=== PATIENT | female | born 1990 ===

== ENCOUNTER 2016-04-30 06:46 | Inpatient (IN) ==
[2016-04-30] MEDS ORDERED: ceFAZolin 2,000 MG in PREMIX 1 EACH IV ONE (07:04)
[2016-04-30] MEDS ORDERED: FAMOTIDINE 20 MG/2 ML VIAL IV ONE (07:04)
[2016-04-30] MEDS ORDERED: CITRIC ACID/SODIUM CITRATE 30 ML UDCUP PO ONE (07:04)
[2016-04-30 07:22] LABS: Basophils % 0.2 % (0.0-0.8); Eosinophils # 0.1 10*3/uL (0.0-0.87); Eosinophils % 0.9 % (0.00-10.9); Hematocrit 35.7 VOL% (35.7-47.0); Hemoglobin 11.3 GM/DL (12.0-16.0); Immature Granulocytes % 0.5 %; Immature Granulocytes Absolute 0.03 #; Lymphocytes # 1.6 10*3/uL (1.4-4.0); Lymphocytes % 27.8 % (21.3-54.2); Mean Corpuscular HGB Conc 31.7 GM/DL (32-36); Mean Corpuscular Hemoglobin 26 PG (27-34); Mean Corpuscular Volume 80.4 FL (87-102); Monocytes # 0.5 10*3/uL (0.11-0.8); Monocytes % 8.6 % (1.7-12.7); Neutrophils # 3.6 10*3/uL (1.4-7.4); Platelet Count 205 T/CUMM (130-400); Red Blood Count 4.44 MC/CUMM (3.8-5.5); Red Cell Distribution Width 14.2 % (9.3-17.3); White Blood Count 5.7 T/CUMM (4-12)
[2016-04-30] MEDS ORDERED: LACTATED RINGERS 1,000 ML IV SCH ×2 (07:30→09:30)
[2016-04-30] MEDS ORDERED: LACTATED RINGERS 1,000 ML IV ONE (08:39)
[2016-04-30] MEDS ORDERED: OXYTOCIN 10 UNIT/ML VIAL IM ONE (09:00)
[2016-04-30] MEDS ORDERED: OXYTOCIN/LR 30 UNIT/1,000 ML BAG IV ONE (09:00)
[2016-04-30] MEDS ORDERED: ONDANSETRON 4 MG/2 ML VIAL ONE (09:11)
[2016-04-30] MEDS ORDERED: hydrOXYzine HCL 25 MG/1 ML VIAL IM PRN (09:21)
[2016-04-30] MEDS ORDERED: diphenhydrAMINE 50 MG/1 ML VIAL IV PRN (09:21)
[2016-04-30] MEDS ORDERED: ONDANSETRON 4 MG/2 ML VIAL IV PRN ×2 (09:21→10:27)
[2016-04-30] MEDS ORDERED: HYDROmorphone 2 MG/1 ML VIAL IV PRN (09:21)
[2016-04-30] MEDS ORDERED: NALOXONE 0.4 MG/ML VIAL IV PRN (09:24)
[2016-04-30] MEDS ORDERED: SODIUM CHLORIDE 0.9% 1,000 ML IV SCH (09:30)
--- NOTE | 2016-04-30 09:38 | OB/GYN History & Physical ---
History of Present Illness Chief complaint: In for elective repeat c/s due to previous c/s History of present illness: Ms. Werner is a 25 year old female who is a 4 para 2 living 2 AB 1. CHET for an estimated gestational age of 39 weeks. The patient presents to the labor department for elective repeat section due to previous section. The risks and benefits have been thoroughly discussed with this patient and significant other and plan care has been discussed with Dr. Saeed in all parties are planned. The patient received her care through the [facility] she started with late care and she received routine care, her course was uneventful. labs: She is O+, RPR is nonreactive, rubella is immune, hepatitis B is negative, HIV is negative, GBS cultures negative. Review of systems is negative with exception of previous section 2. Allergies Allergy/AdvReac Type Severity Reaction Status Date / Time No Known Allergies Allergy Verified 04/30/16 07:03 12 point system: reviewed and no additional remarkable complaints except as stated Medical,Surgical,& Family Hx - Medical History Medical History: noncontributory Reproductive: No history of: Ectopic , Complication - Surgical History Abdominal Surgeries: Surgical HX of: Appendectomy Reproductive Surgeries: Surgical HX of;: Section (C/S X2) Orthopedic Surgeries: Surgical HX of;: Orthopedic Surgery (LEFT KNEE) - Family History Family History: Reports;: Family Diabetes (MOTHER DADDY BROTHER), Family Hypertension (MOTHER DADDY) - Social History Smoking Status: Never smoker Frequency of Alcohol Use: None Type of Drug Use: None Marital Status: Single Lives With:: Significant Other Functional capacity: independent ambulation 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 - Constitutional Vitals: Vital Signs Temp Pulse Resp BP Pulse Ox 04/30/16 08:00 97.1 F L 95 H 20 140/84 98 General appearance: no acute distress - Antepartum / Post Antpartum Exam Cervix -Dilatation: Deferred Breast: bilateral: normal Abdomen obstetrics: Present: bowel sounds normal - Respiratory Respiratory exam: Present: clear to auscultation bilaterally - Cardiovascular Cardiovascular exam: Present: regular rate and rhythm - GI/Abdominal GI/Abdominal exam: Present: normal bowel sounds - Extremities Exam Extremities exam: Present: normal inspection - Back Exam Back exam: Present: normal inspection - Neurological Exam Neurological exam: Present: alert, oriented X3 - Psychiatric Psychiatric exam: Present: normal affect, normal mood - Skin Skin exam: Present: normal color, warm Assessment and Plan (1) Term Status: Acute Assessment and plan: Admit Preop Consent for Repeat C/S Anticipate viable infant. Current Visit: Yes (2) Previous section Status: Acute Current Visit: Yes Results - Labs CBC & BMP: 04/30/16 07:14
[2016-04-30] MEDS ORDERED: RHO(D) IMMUNE GLOBULIN 300 MCG SYRINGE IM ONE (10:27)
[2016-04-30] MEDS ORDERED: MAGNESIUM HYDROXIDE SUSP 30 ML UDCUP PO PRN (10:27)
[2016-04-30] MEDS ORDERED: ACETAMINOPHEN 325 MG TABLET PO PRN (10:27)
[2016-04-30] MEDS ORDERED: SIMETHICONE CHEW 80 MG TABLET PO PRN (10:27)
[2016-04-30] MEDS ORDERED: OXYTOCIN/LR 20 UNIT/1,000 ML BAG IV ONE (10:27)
[2016-04-30] MEDS ORDERED: fentaNYL 100 MCG/2 ML VIAL ONE (10:29)
[2016-04-30] MEDS ORDERED: MORPHINE 10 MG/10 ML VIAL ONE (10:30)
[2016-04-30] MEDS ORDERED: ePHEDrine 50 MG/ML AMP ONE (10:30)
[2016-04-30 10:37] LABS: Apearance,Urine CLEAR (Clear); Bilirubin,Urine Negative (Negative); Blood, Urine Negative (Negative); Glucose,Urine (UA) Negative (Negative); Ketones,Urine Negative (Negative); Mucus,Urine Few /LPF (Occasional); Nitrite,Urine Negative (Negative); Protein,Urine Negative; RBC,Urine <1 /HPF (0-4); Squamous Epithelial Cell,Urine Occasional /HPF (0-10); Urine Color Yellow (Yellow); Urine Specific Gravity 1.018 (1.001-1.035); Urine Urobilinogen < 2.0 EU/DL (0.2-1.0); WBC,Urine <1 /HPF (0-6)
[2016-04-30 10:39] LABS: Cord Arterial Blood HCO3 21.4 MMOL/L
[2016-04-30 10:40] LABS: Cord Venous Blood HCO3 23.8 MMOL/L; Cord Venous Blood PCO2 40.9 MMHG; Cord Venous Blood PO2 40.7 MMHG
[2016-04-30 17:49] LABS: Hematocrit 33.4 VOL% (35.7-47.0); Hemoglobin 10.3 GM/DL (12.0-16.0)
[2016-04-30] MEDS: LACTATED RINGERS 1,000 ML IV SCH (22:00)
[2016-04-30] MEDS: DOCUSATE SODIUM 100 MG CAPSULE PO SCH (22:21)
[2016-05-01 04:37] LABS: Basophils % 0.1 % (0.0-0.8); Eosinophils # 0.1 10*3/uL (0.0-0.87); Eosinophils % 1.3 % (0.00-10.9); Hemoglobin 9.5 GM/DL (12.0-16.0); Immature Granulocytes % 0.4 %; Immature Granulocytes Absolute 0.04 #; Lymphocytes # 1.7 10*3/uL (1.4-4.0); Lymphocytes % 18.3 % (21.3-54.2); Mean Corpuscular HGB Conc 32.8 GM/DL (32-36); Mean Corpuscular Hemoglobin 26 PG (27-34); Mean Corpuscular Volume 79.9 FL (87-102); Mean Platelet Volume 10.1 FL (9.6-12.0); Monocytes # 0.9 10*3/uL (0.11-0.8); Monocytes % 9.7 % (1.7-12.7); Neutrophils # 6.5 10*3/uL (1.4-7.4); Neutrophils % 70.2 % (38.7-73.9); Platelet Count 174 T/CUMM (130-400); Red Blood Count 3.63 MC/CUMM (3.8-5.5); Red Cell Distribution Width 14.2 % (9.3-17.3); White Blood Count 9.3 T/CUMM (4-12)
[2016-05-01] MEDS: LACTATED RINGERS 1,000 ML IV SCH (06:02)
[2016-05-01] MEDS: MULTIVITAMIN (PRENATAL) TABLET PO SCH (08:21)
[2016-05-01] MEDS: DOCUSATE SODIUM 100 MG CAPSULE PO SCH ×2 (08:21→22:10)
[2016-05-01] MEDS: IBUPROFEN 800 MG TABLET PO PRN ×2 (08:21→16:19)
[2016-05-02] MEDS: IBUPROFEN 800 MG TABLET PO PRN (04:36)
[2016-05-02 07:30] VITALS: BP 134/80
[2016-05-02] MEDS: MULTIVITAMIN (PRENATAL) TABLET PO SCH (08:53)
[2016-05-02] MEDS: DOCUSATE SODIUM 100 MG CAPSULE PO SCH (08:53)
[2016-05-02] MEDS ORDERED: INFLUENZA VIRUS VACCINE 0.5 ML SYRINGE IM ONE (09:00)
--- NOTE | 2016-05-02 10:16 | OB/GYN Progress Note ---
Assessment and Plan (1) Term Status: Acute Assessment and plan: Admit Preop Consent for Repeat C/S Anticipate viable infant. Current Visit: Yes (2) Previous section Status: Acute Current Visit: Yes (3) Status post primary low transverse section Status: Acute Assessment and plan: Routine postop orders. Current Visit: Yes PROTECTION OFFICER - PN: Subj Interval history: Stable with no complaints. Bonding well infant. 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 OFFICER - Constitutional Vitals: Vital Signs Temp Pulse Resp BP Pulse Ox 05/02/16 07:29 97.4 F L 98 H 20 134/80 97 05/02/16 06:00 20 05/02/16 04:00 97.6 F 90 20 131/74 99 05/01/16 23:51 97.8 F 94 H 20 135/77 99 05/01/16 20:00 97.2 F L 119 H 20 135/75 98 05/01/16 16:00 98.5 F 106 H 18 135/82 100 05/01/16 12:00 98.0 F 101 H 18 126/63 100 General appearance: no acute distress - Gyencological / Post Surgical Post Surgical Exam Lungs: bilateral: normal Chest: Normal S1, Normal S2 Extremities PROTECTION OFFICER: Present: tenderness Abdomen obstetrics progress note: Present: normal appearance, soft Incision OB: Present: normal, intact - Head Head exam: Present: normal inspection - Respiratory Respiratory exam: Present: clear to auscultation bilaterally - Cardiovascular Cardiovascular exam: Present: regular rate and rhythm - GI/Abdominal GI/Abdominal exam: Present: normal bowel sounds, soft - Extremities Exam Extremities exam: Present: normal inspection - Neurological Exam Neurological exam: Present: alert, oriented X3 - Psychiatric Psychiatric exam: Present: normal affect, normal mood - Skin Skin exam: Present: normal color, warm Results - Labs CBC & BMP: 05/01/16 04:21
--- NOTE | 2016-05-02 10:19 | Discharge Summary ---
Hospital Course - Hospital Course Hospital Course: Ms Werner is a 25-year-old female who presented for repeat section due to previous section. The patient has followed normal postoperative course. She desires to go home. Her incision is well approximated without any signs and symptoms of infection. Her bowel sounds are positive she has had a normal bowel movement. Her bleeding is minimal with no odor. The patient will be discharged to home with prescriptions and a follow-up appointment in our office. Vital Signs and lab values are stable. The patient is bonding well with her infant. She is ambulating without any pain in her legs. Diagnosis - Discharge Diagnosis (1) Term Status: Acute (2) Previous section Status: Acute (3) Status post primary low transverse section Status: Acute Specialty Discharge - Follow Up or Referrals Follow up with: Yuri Saeed MD [Physician] - 2 Weeks Discharge Plan - Discharge Data Disposition: Disch To Home/Self Care Condition at Discharge: Stable Discharge Diet: advance to your usual diet, regular diet Activity: increase activity as tolerated, no lifting, no restrictions Hygiene: may shower Weight Bearing at Discharge: partial weight bearing Driving: not until seen by doctor Contact your physician if you experience:: fever over 101, pain uncontrolled by pain medications - Discharge Medications New HYDROcodone/ACETAMIN 5-325 [[place] 5-325] 2 tablet PO Q6H PRN #30 tablet PRN Reason: Pain Severe (8-10) Ibuprofen Tab [Motrin Tab] 800 mg PO Q8H PRN #30 tablet PRN Reason: Pain Severe (8-10) No Action Vit No.124/Iron/FA [ Vitamin Tablet] 1 each PO DAILY - Follow Up or Referral - Forms/Instructions Exam - Constitutional Vitals: Period Temp Pulse Resp BP Sys/[place] Pulse Ox Last 24 Hr 97.2 F-98.5 F 90-119 18-20 126-135/63-82 97-100 General appearance: no acute distress - Head Head exam: Present: normal inspection - Respiratory Respiratory exam: Present: clear to auscultation bilaterally - Cardiovascular Cardiovascular exam: Present: regular rate and rhythm - GI/Abdominal GI/Abdominal exam: Present: normal bowel sounds, soft - Extremities Exam Extremities exam: Present: normal inspection - Back Exam Back exam: Present: normal inspection - Neurological Exam Neurological exam: Present: alert, oriented X3 - Psychiatric Psychiatric exam: Present: normal affect, normal mood - Skin Skin exam: Present: normal color, warm DS: Provider Date of admission: 04/30/16 07:04 Primary care physician: . No PCP Attending physician on admission: Yuri Saeed MD Consults: 04/30/16 07:04 Consult to Anesthesiology [CONS] Routine Consulting Provider: Reason for Anesthesiology: Pre-op Clearance 04/30/16 10:27 Consult to Field Operations Farm Manager [CONS] Routine Consult Field Operations Farm Manager: Breast Feeding Discharging clinician: Gaby Dean CNM Expected date of discharge: 05/02/16
--- NOTE | 2016-08-06 07:21 | Operative Note ---
DATE: 04/30/2016 PREOPERATIVE DIAGNOSIS: REPEAT SECTION. POSTOPERATIVE DIAGNOSIS: REPEAT SECTION. PROCEDURE PERFORMED: LOW TRANSVERSE SECTION. BLOOD LOSS: Less than 400 cc. ANESTHESIA: Regional. SURGEON: Yuri Saeed MD The delivery of this patient was an delivered on 04/30/16 at 9:37 a.m., placenta was delivered at 9:38, 8-pound 12-ounce male . Apgars were 9 and 9. PROCEDURE: The patient was taken to the Operating Suite, administration of Regional anesthesia, and placed in supine position. Through a Pfannenstiel incision, through the skin and subcutaneous layer through the fascia layer, the rectus abdominis muscle split in the midline. Abdominal peritoneum was entered. Bladder flap was created. A low transverse incision was made. Placenta was delivered without any complications. Cord pH was obtained. Blood 3 cord vessels were noted. The uterus injected with intrauterine Pitocin and the incision was then repaired with 0 Vicryl in continuous like manner, circulated to imbricate the first layer of #1 Vicryl. Peritoneum approximated with 2-0 Vicryl. All the lap, sponge and instruments were accounted for. [facility]
== END 2016-05-02 12:30 | disposition home or self-care (01) | DRG 540 ==
LOC: N.LDOUT 06:46 → N.LD 06:50 → N.OB 12:55
PROVIDERS: ADMIT Obstetrics & Gynecology; ATTEND Obstetrics & Gynecology
PROC: LDCSECT (ICD-10-PCS; 2016-04-30 09:00)